=== PATIENT | female | born 1990 | race Hispanic/Latino ===

== ENCOUNTER 2018-06-17 18:12 | Emergency (ER) | payer MEDICAID ==
--- NOTE | 2018-06-17 18:53 | Emergency Department Report ---
History of Present Illness - General Chief Complaint: Overdose Stated Complaint: SUICIDAL THOUGHTS Time Seen by Provider: 06/17/18 18:35 Source: patient, EMS Mode of arrival: Stretcher Limitations: No Limitations - History of Present Illness Initial Comments: Patient is a 28-year-old female that presents to emergency room with complaints of suicide attempt with overdose by taking 6 Adderall 10 mg extended release. Patient states she was coming down off of heroin and had thoughts of killing herself so she took Adderall. Patient states last time she used heroin was 3-4 days ago. Patient states she also used marijuana about a week ago and drank one beer today. Patient admits to suicidal thoughts. Patient denies homicidal ideations. Patient denies chest pain or shortness of breath. Patient states she took the Adderall at 9:00 this morning MD Complaint: intentional overdose -: Sudden Intent: suicide attempt How Overdose Was Discovered: called family/friend Context: Intentional Overdose: relationship problems, drug/ETOH problems Associated Symptoms: depression Treatments Prior to Arrival: none - Related Data Home Medications Medication Instructions Recorded Confirmed Last Taken Tablet 1 tab PO DAILY 10/09/14 11/02/14 11/02/14 Allergies Allergy/AdvReac Type Severity Reaction Status Date / Time sulfamethoxazole Allergy Vomiting Verified 11/02/14 14:33 [From Bactrim] trimethoprim [From Bactrim] Allergy Vomiting Verified 11/02/14 14:33 ED Review of Systems ROS: Stated complaint: SUICIDAL THOUGHTS Other details as noted in HPI Constitutional: denies: chills, fever Eyes: denies: eye pain, eye discharge, vision change ENT: denies: ear pain, throat pain Respiratory: denies: cough, shortness of breath, wheezing Cardiovascular: denies: chest pain, palpitations Endocrine: no symptoms reported Gastrointestinal: denies: abdominal pain, nausea, diarrhea Genitourinary: denies: urgency, dysuria, discharge Musculoskeletal: denies: back pain, joint swelling, arthralgia Skin: denies: rash, lesions Neurological: denies: headache, weakness, paresthesias Psychiatric: depression, suicidal thoughts. denies: anxiety Hematological/Lymphatic: denies: easy bleeding, easy bruising ED Past Medical Hx - Past Medical History Previous Medical History?: Yes Hx Psychiatric Treatment: Yes (bipolar, schizophrenia) - Surgical History Past Surgical History?: Yes Additional Surgical History: x2, tubal ligation - Family History Family history: no significant - Social History Smoking Status: Current Every Day Smoker Substance Use Type: Alcohol, Heroin, Marijuana - Medications Home Medications: Home Medications Medication Instructions Recorded Confirmed Last Taken Type Tablet 1 tab PO DAILY 10/09/14 11/02/14 11/02/14 History ED Physical Exam - General Limitations: No Limitations General appearance: alert, in no apparent distress - Head Head exam: Present: atraumatic, normocephalic - Eye Eye exam: Present: normal appearance - ENT ENT exam: Present: mucous membranes dry - Neck Neck exam: Present: normal inspection - Respiratory Respiratory exam: Present: normal lung sounds bilaterally. Absent: respiratory distress - Cardiovascular Cardiovascular Exam: Present: regular rate, normal rhythm. Absent: systolic murmur, diastolic murmur, rubs, gallop - GI/Abdominal GI/Abdominal exam: Present: soft, normal bowel sounds - Extremities Exam Extremities exam: Present: normal inspection - Back Exam Back exam: Present: normal inspection - Neurological Exam Neurological exam: Present: alert, oriented X3 - Psychiatric Psychiatric exam: Present: depressed, suicidal ideation - Skin Skin exam: Present: warm, dry, intact, normal color. Absent: rash ED Course Vital Signs 06/17/18 06/17/18 06/17/18 18:23 19:01 19:57 Temperature 98.8 F Pulse Rate 105 H 118 H Respiratory 22 20 Rate Blood Pressure 138/91 138/91 O2 Sat by Pulse 95 96 Oximetry 06/17/18 06/17/18 06/17/18 21:00 22:00 23:00 Temperature Pulse Rate 89 75 81 Respiratory 30 H 33 H 12 Rate Blood Pressure 141/85 130/82 120/52 O2 Sat by Pulse 94 76 L 98 Oximetry 06/17/18 23:07 Temperature Pulse Rate Respiratory 16 Rate Blood Pressure O2 Sat by Pulse 99 Oximetry - Reevaluation(s) Reevaluation #1: Initial evaluation done. Patient will be placed on a 1013. Poison control will be called by nurse. 06/17/18 18:35 TERESITAUMANG DE LA GARZA Female : 1990 MedRec# [id number] 06/17/18 20:00 - Nurse Note by USAMA KRISHNAN Acct Num: [id number] : 1990 Patient Age: 28 Poison control called recommendations include: There will be stimulant effects such as HTN, and tachycardia, watch and make sure these symptoms resolve. Continue cardiac monitoring, get an EKG, give benzos for agitation, anxiety Pt in NAD at this time, pt does not appear agitated or anxious at this time. will continue to monitor. Initialized on 06/17/18 20:00 - END OF NOTE Reevaluation #2: Patient's tachycardia has resolved. Patient has lapsed time allotted by poison control and stimulant symptoms have resolved. Patient is medically clear. Patient is stable. 06/18/18 00:43 Patient is resting comfortably in bed. Patient tolerating by mouth intake. Patient is medically cleared. Patient will remain on a 1013. Mental health consulted and has seen patient. 06/18/18 01:35 ED Medical Decision Making - Lab Data Result diagrams: 06/17/18 18:50 06/17/18 18:50 - EKG Data -: EKG Interpreted by [facility] EKG shows normal: sinus rhythm, axis, intervals, QRS complexes, ST-T waves - Medical Decision Making Patient is a 28-year-old female presents to emergency room with suicide attempt by O redosed with Adderall extended release. Poison control was contacted and recommendations were received. Patient states she might be even though she had a tubal ligation.. Labs unremarkable. Per recommendations from poison control, patient needed to be observed until all stimulant effects it resolved i .e. tachycardia. Tachycardia resolved. Patient was given fluids. Patient will remain on a 1013 until accepted into appropriate psychiatric facility. Patient is medically cleared. - Differential Diagnosis overdose. Suicide attempt. Suicidal ideation. Depression. Drug abuse. Critical Care Time: Yes Critical care attestation.: If time is entered above; I have spent that time in minutes in the direct care of this critically ill patient, excluding procedure time. Critical Care Time: 35 minutes ED Disposition Clinical Impression: Suicidal ideation, Tachycardia, Drug abuse Overdose Qualifiers: Encounter type: initial encounter Injury intent: intentional self-harm Qualified Code(s): T50.902A - Poisoning by unspecified drugs, medicaments and biological substances, intentional self-harm, initial encounter Depression Qualifiers: Depression Type: unspecified Qualified Code(s): F32.9 - Major depressive disorder, single episode, unspecified Disposition: -09 OP ADMIT IP TO THIS HOSP Is pt being admited?: Yes Does the pt Need Aspirin: No Condition: Critical Additional Instructions: Patient is medically cleared Referrals: PETTY ALLEN DO [Primary Care Provider] - 3-5 Days Time of Disposition: 01:37
[2018-06-17 19:33] LABS: Basophils % (Auto) 0.2 % (0.0-1.8); Eosinophils % (Auto) 0.2 % (0.0-4.3); Hematocrit 39.7 % (30.3-42.9); Hemoglobin 13.5 gm/dl (10.1-14.3); Lymphocytes # (Auto) 1.8 K/mm3 (1.2-5.4); Mean Corpuscular HGB Conc 34 % (30-34); Mean Corpuscular Volume 82 fl (79-97); Monocytes # (Auto) 0.7 K/mm3 (0.0-0.8); Monocytes % (Auto) 5.8 % (0.0-7.3); Platelet Count 269 K/mm3 (140-440); Red Blood Count 4.84 M/mm3 (3.65-5.03); Red Cell Distribution Width 15.3 % (13.2-15.2)
[2018-06-17 19:53] LABS: BUN/Creatinine Ratio 10; Blood Urea Nitrogen 8 mg/dL (7-17); Calcium 9.5 mg/dL (8.4-10.2); Hemolysis Index 7
[2018-06-18 02:41] LABS: Bilirubin,Urine NEG (Negative); Blood,Urine NEG (Negative); Color,Urine Straw (Yellow); Protein,Urine <15 mg/dL mg/dL (Negative); Urobilinogen,Urine < 2.0 mg/dL (<2.0)
[2018-06-18 02:49] LABS: Benzodiazepines Screen,Urine PRESUMPTIVE NEGATIVE; Cannabinoid Screen,Urine PRESUMPTIVE NEGATIVE; Cocaine Screen,Urine PRESUMPTIVE NEGATIVE; Methadone Screen,Urine PRESUMPTIVE NEGATIVE; Opiate Screen,Urine PRESUMPTIVE NEGATIVE
[2018-06-18 03:10] LABS: Amphetamine Screen,Urine PRESUMPTIVE POSITIVE
[2018-06-18 08:51] VITALS: BP 123/75
--- NOTE | 2018-06-18 12:49 | Consultation ---
History of Present Illness - Reason for Consult Consult date: 06/18/18 Reason for consult: Mental Health Evaluation Requesting physician: AZAR VEGA III - Chief Complaint Chief complaint: "I took the pills" - History of Present Psychiatric Illness 28-year-old white female presented to the ER for overdosing on several Adderall pills. Today the patient is calm, but disorganized during the assessment. She was asked several questions about her actions prior to her arrival to the ER. Most of her answers were not logical, but she did acknowledge taking the Adderall pills to . She stated that the pill were not prescribed for her. She stated that she do not have her kids at this time and have no reason to live. She could not explain what happened why her kids are now residing with her mother. She had to be redirected several times to keep her on topic. She denies HI's and VH's. She would not confirm or deny AH's. The patient isn't a good historian at this time. Medications and Allergies Allergies Allergy/AdvReac Type Severity Reaction Status Date / Time sulfamethoxazole Allergy Vomiting Verified 11/02/14 14:33 [From Bactrim] trimethoprim [From Bactrim] Allergy Vomiting Verified 11/02/14 14:33 Home Medications Medication Instructions Recorded Confirmed Last Taken Type Tablet 1 tab PO DAILY 10/09/14 11/02/14 11/02/14 History Past psychiatric history - Past Medical History Past Medical History: other (Preg x 2) Past Surgical History: Other (Tubal Ligation) - past Psychiatric treatment and history psychiatric treatment history: The patient was vague about her psy hx. Denies aa fam psy hx. - Social History Social history: lives with family Mental Status Exam - Vital signs Last Vital Signs Temp 99.4 F 06/18/18 08:00 Pulse 70 06/18/18 08:00 Resp 18 06/18/18 08:52 BP 123/75 06/18/18 08:00 Pulse Ox 98 06/18/18 08:52 - Exam Narrative exam: MSE: Appearance: calm, disheveled Behavior: poor eye contact Speech: regular regular and tone Mood: "depressed" Affect: congruent to mood Thought Process: disorganized Thought Content: denies HI's and VH's Motor Activity: sitting up in bed Cognition: A/O x 3 Insight: poor Judgment: poor Results Result Diagrams: 06/17/18 18:50 06/17/18 18:50 Abnormal lab results 06/17/18 06/17/18 06/17/18 Range/Units 18:50 18:50 18:50 WBC (4.5-11.0) K/mm3 RDW (13.2-15.2) % Seg Neutrophils % (40.0-70.0) % Seg Neutrophils # (1.8-7.7) K/mm3 Carbon Dioxide 21 L (22-30) mmol/L Salicylates < 0.3 L (2.8-20.0) mg/dL Acetaminophen < 5.0 L (10.0-30.0) ug/mL 06/17/18 Range/Units 18:50 WBC 11.6 H (4.5-11.0) K/mm3 RDW 15.3 H (13.2-15.2) % Seg Neutrophils % 77.8 H (40.0-70.0) % Seg Neutrophils # 9.0 H (1.8-7.7) K/mm3 Carbon Dioxide (22-30) mmol/L Salicylates (2.8-20.0) mg/dL Acetaminophen (10.0-30.0) ug/mL All other labs normal. Assessment and Plan Assessment and plan: Impression: Unspecified Mood DO with psy features. Today the patient is calm, but disorganized during the assessment. The patient overdosed on several Adderall pills. DDx: Bipolar DO with psychosis, MDD, with psychosis, Schizoaffective DO, R/O Medication Induced Psychosis Recommendation/Plan: Continue 1013. Dispo: The patient was accepted at [facility] for inpatient psy services. Will staff with Dr Hoffman.
== END 2018-06-18 14:00 | disposition admitted as inpatient to this hospital (09) ==
LOC: ED 18:12
DX: T43.622A Poisoning by amphetamines, intentional self-harm, initial encounter (principal); R00.0 Tachycardia, unspecified; F32.9 Major depressive disorder, single episode, unspecified; F31.9 Bipolar disorder, unspecified; F20.9 Schizophrenia, unspecified; F17.200 Nicotine dependence, unspecified, uncomplicated; F12.10 Cannabis abuse, uncomplicated; Z98.51 Tubal ligation status; Z88.2 Allergy status to sulfonamides; Z88.8 Allergy status to other drugs, medicaments and biological substances; Y92.89 Other specified places as the place of occurrence of the external cause
CPT/HCPCS: 36415; 80048; 80307; 81001; 84703; 85025; 93005; 93010; 99291; G0480; 80320

== ENCOUNTER 2018-06-28 18:14 | Emergency (ER) | payer MEDICAID ==
--- NOTE | 2018-06-28 18:37 | Emergency Department Report ---
Blank Doc - Documentation Documentation: 28-year-old female that presents with c/o of bilateral axilla abscess. Patient denies any fever. Denies any other complaints. This initial assessment diagnostic orders/clinical plan/treatment(s) is/are subject to change based on patient's health status, clinical progression and re- assessment by fellow clinical providers in the ED. Further treatment and workup at subsequent clinical providers discretion. Patient/guardians urged not to elope from ED s their condition may be serious if not clinically assessed and managed. Initial orders include: 1-Patient sent to [facility] for further evaluation and treatment
== END 2018-06-28 20:55 | disposition left against medical advice (07) ==
LOC: ED 18:14

== ENCOUNTER 2022-01-13 14:24 | Emergency (ER) | payer SELFPAY ==
[2022-01-13 14:34] VITALS: BP 103/99
--- NOTE | 2022-01-13 15:29 | XRay Report ---
CHEST 2 VIEWS INDICATION / CLINICAL INFORMATION: Dyspnea. COMPARISON: None available. FINDINGS: SUPPORT DEVICES: None. HEART / MEDIASTINUM: No significant abnormality. LUNGS / PLEURA: No significant pulmonary or pleural abnormality. No pneumothorax. ADDITIONAL FINDINGS: No significant additional findings. IMPRESSION: 1. No acute findings. Signer Name: Rehana Mcintosh MD Signed: 01/13/2022 3:25 PM Workstation Name: [id number]
--- NOTE | 2022-01-14 09:31 | Electrocardiograph Report ---
[facility] Test Date: 2022-01-13 Test Time: 15:02:05 Pat Name: UMANG LO Department: Room: Gender: F Support Dba: YANCI : 1990 Requested By: JAYSON FANG Order Number: [id number] Reading MD: Brian Simon Measurements Intervals [place] Rate: 111 P: 32 FL: 132 QRS: 20 QRSD: 89 T: 7 QT: 389 QTc: 529 Interpretive Statements Sinus tachycardia nonspecific st-t No previous ECG available for comparison Electronically Signed On 01-14-2022 9:31:00 EDT by Brian Simon
== END 2022-01-13 19:20 | disposition left against medical advice (07) ==
LOC: ED 14:24
DX: R06.02 Shortness of breath (principal); Z53.21 Procedure and treatment not carried out due to patient leaving prior to being seen by health care provider
CPT/HCPCS: 71046; 93005